=== PATIENT | female | born 1975 | race Caucasian/White ===

== ENCOUNTER 2020-05-28 18:58 | Inpatient (IN) | payer MEDICAID ==
[~2020-05-28] VITALS: Ht 170.2 cm; Wt 93.6 kg
--- NOTE | ~2020-05-28 | HEMODYNAMI ---
PATIENT:FREEMAN HENDERSON MEDICAL RECORD: [id number] : 73 LOCATION:[facility] D.2114 [facility]# [id number] ADMISSION DATE: 05/29/20 Generatedon:115:29 Patient name: FREEMAN HENDERSON Patient #: [id number] SSN: [id number] : 1975 Date of study: 05/29/2020 Page: Of Hemodynamic Procedure Report Patient Data Patient Demographics Procedure consent was obtained First Name: FREEMAN Gender: Female Last Name: SANTIAGO : 1975 Patient #: [id number] Age: 45 year(s) Race: SSN: [id number] Ethnicity: or Additional ID: [id number] Contact details [address]: [address] [place] [address] State: [place] City: [place] Zip code: [address] Past Medical History Allergies: No known allergies Admission Admission Data Admission Date: 05/29/2020 Admission Time: 0:26 Arrival Date: 05/29/2020 Arrival Time: 0:00 Admit Source: Other Insurance Payor: Medicaid Room #: D.2114 [facility] #: [id number] Height (in.): 67 BSA: 2.05 (m2) Height (cm.): 170.18 BMI: 32.32 (kg/m2) Weight (lbs.): 206.38 Weight (kg.): 93.61 Lab Results Lab Result Date: 05/29/2020 Lab Result Time: 0:00 Biochemistry Name Units Result Min Max BUN mg/dl 13 --(--*-)-- 7 18 CK-MB ng/ml 87.8 --(----)-* 0 3.6 Creatinine mg/dl 0.7 --(*---)-- 0.6 1.3 eGFR ml/min 90 --(*---)-- 90 120 NONAFRICAN Troponin l ng/ml 6.611 --(----)-* 0 0.06 CBC Name Units Result Min Max Hematocrit % 37.6 *-(----)-- 42 54 Hemoglobin g/dl 12.5 *-(----)-- 13.5 17.5 Procedure Procedure Types Cath Procedure Diagnostic Procedure [facility] w/Coronaries Sedation Charges Moderate Sedation 40-54 minutes PCI Procedure Coronary Stent Coronary Stent Initial Procedure Description Procedure Date Procedure Date: 05/29/2020 Procedure Start Time: 14:49 Procedure End Time: 15:13 Procedure Staff Name Function Emily Knapp RT Monitor Divya Jimenez RN Nurse Ronald Pollard MD Performing Physician Mellissa Jacobs RT Scrub Procedure Data Cath Procedure Fluoroscopy Diagnostic fluoroscopy Total fluoroscopy Time: 6.4 time: 6.4 min min Diagnostic fluoroscopy Total fluoroscopy dose: 866 dose: 866 mGy mGy Contrast Material Contrast Material Type Amount (ml) Isovue 300 111 Entry Location Entry Primary Successful Side Size Upsize Upsize Entry Closure Hayes ccessful Closure Location (Fr) 1 (Fr) 2 (Fr) Remarks Device Remarks Radial Right 6 Fr Mechanical artery Short Compression Estimated blood loss: 5 ml Diagnostic catheters Device Type Used For End Catheter Placement DIAGNOSTIC Jenkins 110cm 5 LV Angiography Fr catheter ([id number]) DIAGNOSTIC Jenkins 110cm 5 Right Coronary Fr catheter ([id number]) Angiography DIAGNOSTIC Jenkins 110cm 5 Left Coronary Fr catheter ([id number]) Angiography Procedure Complications No complications Procedure Medications Medication Administration Route Dosage Oxygen etCO2 Nasal cannula 2 l/min Lidocaine 2% added to field 20 Heparin Flush Bag added to field 2 bags (1000units/500ml NS) 0.9% NaCl I.V. 100 ml/hr Versed I.V. 2 mg Fentanyl I.V. 100 mcg Radial Cocktail I.A. 1 syringe (Verapamil 2mg/Nitro 400mcg/Heparin 1500units) Versed I.V. 1 mg Fentanyl I.V. 50 mcg Versed I.V. 1 mg Fentanyl I.V. 50 mcg Heparin Bolus I.V. 5000 units Versed I.V. 1 mg Fentanyl I.V. 50 mcg Versed I.V. 1 mg Hemodynamics Rest HGB: 12.5 (g/dl) Heart Rate: 56 (bpm) Pressure Samples Time Site Value (mmHg) Purpose Heart Use Rate(bpm) 14:49 LV 107/10,14 Snapshot 67 14:50 LV 102/10,13 Pullback 64 14:50 AO 95/59(75) Pullback 64 14:51 AO 91/46(59) Snapshot 64 Gradients Valve Time Site 1 Site 2 Mean SEP/DFP Peak To Heart Use (mmHg) (sec/min) Peak Rate (mmHg) (bpm) Aortic 14:50 LV AO 7 13 7 64 102/10,13 95/59(75) Calculations Valve P-P Mean Valve Index Valve Source Name Gradient Area Flow (cm2) Aortic 7 7 7 7 Snapshots Pre Cath Intra NCS Post Cath Vital Signs Time Heart Resp SPO2 etCO2 NIBP Rhythm Pain Sedation Rate (ipm) (%) (mmHg) (mmHg) Status Level (bpm) 14:32:35 56 21 98 27 106/59(76) NSR 0 (11) 10(A) , No pain 14:36:49 54 20 98 27.7 108/59(79) NSR 0 (11) 10(A) , No pain 14:41:09 57 18 97 33.7 120/58(76) NSR 0 (11) 10(A) , No pain 14:45:27 57 17 98 35.2 107/53(74) NSR 0 (11) 10(A) , No pain 14:49:45 69 18 99 30.8 91/57(74) NSR 0 (11) 10(A) , No pain 14:53:57 65 17 100 36 103/60(86) NSR 0 (11) 10(A) , No pain 14:58:15 63 12 100 37.5 105/54(66) NSR 0 (11) 9(A) , No pain 15:02:29 60 13 100 34.5 106/65(89) NSR 0 (11) 9(A) , No pain 15:06:45 59 14 100 36.7 108/65(81) NSR 0 (11) 10(A) , No pain 15:10:59 55 16 100 31.5 117/68(85) NSR 0 (11) 10(A) , No pain Medications Time Medication Route Dose Verified Delivered Reason Not es Effectiveness by by 14:31:46 Oxygen etCO2 2 l/min Ronald Stokes used for Nasal St Bari Jimenez grave digger cannula 14:31:53 Lidocaine 2% added 20ml Ronald Cardenas for local to vial [facility] anesthetic field MD ARCHIBALD 14:31:59 Heparin Flush added 2 bags Ronald Cardenas used for Bag to [facility] procedure (1000units/500ml field MD ARCHIBALD NS) 14:33:02 0.9% NaCl I.V. 100 Ronald Buffie Per physician ml/hr St Bari Jimenez RN, MD 14:47:52 Versed I.V. 2 mg Ronald Sequeiraie for sedation St Bari Jimenez RN, MD 14:47:57 Fentanyl I.V. 100 mcg Ronald Buffie for sedation St Bari Jimenez RN, MD 14:49:05 Radial Cocktail I.A. 1 Ronald Cardenas for (Verapamil syringe [facility] vasodilation 2mg/Nitro MD ARCHIBALD 400mcg/Hepari 14:50:23 Versed I.V. 1 mg Ronald Buffie for sedation St Bari Jimenez RN, MD 14:50:28 Fentanyl I.V. 50 mcg Ronald Buffie for sedation St Bari Jimenez RN, MD 14:54:02 Versed I.V. 1 mg Ronald Buffie for sedation St Bari Jimenez RN, MD 14:54:06 Fentanyl I.V. 50 mcg Ronald Buffie for sedation St Bari Jimenez RN, MD 14:56:01 Heparin Bolus I.V. 5000 Ronald Buffie for hernan ified units St Bari Jimenez RN anticoagulation with dr MD senior 14:58:41 Versed I.V. 1 mg Ronald Buffie for sedation St Bari Jimenez RN, MD 14:58:44 Fentanyl I.V. 50 mcg Ronald Buffie for sedation St Bari Jimenez RN, MD 15:04:35 Versed I.V. 1 mg Ronald Buffie for sedation St Bari Jimenez RN, MD Procedure Log Time Note 13:40:58 Informed consent obtained and on chart 13:41:14 Diagnostic Cath Status : Urgent 13:41:39 Arrival Date: 05/29/2020 12:00:00 AM 13:41:40 Admit Source: Other 13:41:43 Insurance Payor : Medicaid 13:42:43 Lab Result : eGFR NONAFRICAN 90 ml/min 13:42:43 Lab Result : Hemoglobin 12.5 g/dl 13:42:43 Lab Result : Hematocrit 37.6 % 13:42:43 Lab Result : Troponin l 6.611 ng/ml 13:42:43 Lab Result : BUN 13 mg/dl 13:42:43 Lab Result : Creatinine 0.7 mg/dl 13::43 Lab Result : CK-MB 87.8 ng/ml 13:43:09 Patient Height : 67 inches 13:43:11 Patient Weight : 206.38 lbs 13:43:18 ACC Patient presents with Unstable Angina CCS Anginal Class 2--Slight limitation of ordinary activity. 13:43:21 Procedure Status Urgent Heart Cath (IP). 13:43:23 Time tracking: Regular hours (M-F 7:00 - 5:00) 13:43:27 Plan of Care:Hemodynamics will remain stable., Cardiac rhythm will remain stable., Comfort level will be maintained., Respiratory function will remain adequate., Patient/ family verbilizes understanding of procedure., Procedure tolerated without complication., Recovers from procedure without complications.. 13:43:33 Lab results completed and on chart. 13:43:35 Stress Test: no; N/A ? 14:00:17 Risk of Mortality: 0.1 14:00:19 Risk of blood transfusion: 0.3 14:00:21 Risk of SHAVONNE: 0.4 14:00:47 Bleeding risk 0.3%. 14:00:55 Patient allergic to No known allergies 14:04:25 Divya Jimenez RN sent for patient. Start room use. 14:21:07 Patient received from PCU to CCL 1 Alert and oriented. Tansferred to table in Supine position. 14:31:18 Correct patient and procedure confirmed by team. 14:31:18 Warm blankets applied, and andrzej hugger turned on for patient comfort. 14:31:19 ECG and BP/O2 sat monitors applied to patient. 14:31:20 Vital chart was started 14:31:23 Rhythm: sinus rhythm 14:31:25 Full Disclosure recording started 14:31:30 H&P Date Dictated: 05/29/2020 Within 30 days and on chart.. 14:31:31 Pre-procedure instructions explained to patient. 14:31:32 Pre-op teaching completed and patient verbalized understanding. 14:31:34 Family unavailable. 14:31:36 Patient NPO since Midnight. 14:31:38 Is the patient allergic to Iodine/contrast media? No. 14:31:40 Is patient on blood thinner?Yes 14:31:45 ACC The patient was administered the following blood thiners within the last 24 hours: ACCPlavix 14:31:46 Oxygen 2 l/min etCO2 Nasal cannula was administered by Divya Jimenez RN; used for procedure; Verbal order read back and verified. 14:31:47 Patient diabetic? No. 14:31:52 Lidocaine 2% 20ml vial added to field was administered by Ronald Pollard MD; for local anesthetic; Verbal order read back and verified. 14:31:59 Heparin Flush Bag (1000units/500ml NS) 2 bags added to field was administered by Ronald Pollard MD; used for procedure; Verbal order read back and verified. 14:32:23 Previous problem with sedation/anesthesia? No ? 14:32:24 Snore? No 14:32:25 Sleep apnea? No 14:32:26 Deviated septum? No 14:32:27 Opens mouth fully? Yes 14:32:28 Sticks out tongue? Yes 14:32:32 Dentures? No ? 14:32:34 Airway obstruction? No ? 14:32:38 Pre procedure: right dorsailis pedis pulse 2+ Normal; easily identifiable; not easily obliterated 14:32:40 Modified Homar's test Ulnar < 7 seconds 14:32:41 Patient pain scale 0/10 ?. 14:32:48 IV patent on arrival in left hand with 0.9% NaCl at [facility]. 14:33:00 Right Radial & Right Groin area was prepped with chlora-prep and draped in sterile fashion 14:33:01 Alarms reviewed by R. N. 14:33:02 Sharps counted by scrub and verified by R.N. 14:33:02 0.9% NaCl 100 ml/hr I.V. was administered by Divya Jimenez RN; Per physician; Verbal order read back and verified. 14:33:11 Patient not . Patient has had hysterectomy. 14:42:33 Baseline sample Acquired. 14:42:37 Zero performed for pressure channel P1 14:46:30 Final Timeout: patient, procedure, and site verified with staff and physician. All members of the team are in agreement. 14:46:33 Right Radial site verified by team. 14:46:37 Fire Safety Assessment: A--An alcohol-based skin anteseptic being used preoperatively., C--Open oxygen or nitrous oxide is being used., D--An ESU, laser, or fiber-optic light is being used. 14:46:41 Physical assessment completed. ASA score P 2 - A patient with mild systemic disease as per Ronald Pollard MD. 14:46:43 1) 90+ Normal kidney functon but urine findings or structural abnormalities or genetic trait point to kidney disease. 14:46:46 Maximum allowable contrast dose (3.7 X eGFR X 0.75)250 ml. 14:46:50 Sedation plan: IV Moderate Sedation Medication:Versed, Fentanyl 14:46:54 Use device set Radial Dx or PCI 14:46:55 Medline Cath Pack ([id number]) opened to sterile field. 14:46:55 ACIST Syringe (38188) opened to sterile field. 14:46:56 ACIST Hand Control (20195) opened to sterile field. 14:46:56 Bag Decanter (2002S) opened to sterile field. 14:46:57 MBrace Wrist Support ([id number]) opened to sterile field. 14:46:57 ACIST Manifold (39319) opened to sterile field. 14:47:00 EMERALD Guide Wire (040-281) opened to sterile field. 14:47:03 SHEATH 6FR RAIN (7506914) opened to sterile field. 14:47:10 Local anesthetic to right radial artery with Lidocaine 2% by Ronald Pollard MD.INITIAL ACCESS ONLY 14:47:35 A 6 Fr Short sheath was inserted into the Right Radial artery 14:47:52 Versed 2 mg I.V. was administered by Divya Jimenez RN; for sedation; Verbal order read back and verified. 14:47:57 Fentanyl 100 mcg I.V. was administered by Divya Jimenez RN; for sedation; Verbal order read back and verified. 14:48:36 A DIAGNOSTIC Jenkins 110cm 5 Fr catheter (652439) was advanced over the wire and used for LV Angiography. 14:49:05 Radial Cocktail (Verapamil 2mg/Nitro 400mcg/Heparin 1500units) 1 syringe I.A. was administered by Ronald Pollard MD; for vasodilation; Verbal order read back and verified. 14:49:40 Procedure started. 14:49:54 LV gram done using CHUNG 14:50:05 EF : 55 % 14:50:07 LV hemodynamics recorded. 14:50:09 Injector settings: Ml/sec: 5, Volume: 15, 14:50:17 A DIAGNOSTIC Jenkins 110cm 5 Fr catheter (399120) was advanced over the wire and used for Right Coronary Angiography. 14:50:23 Versed 1 mg I.V. was administered by Divya Jimenez RN; for sedation; Verbal order read back and verified. 14:50:28 Fentanyl 50 mcg I.V. was administered by Divya Jimenez RN; for sedation; Verbal order read back and verified. 14:50:38 A DIAGNOSTIC Jenkins 110cm 5 Fr catheter ([id number]) was advanced over the wire and used for Left Coronary Angiography. 14:52:20 Catheter removed. 14:52:25 Proceeding to intervention. 14:52:38 Use device set AVERILL PCI 14:52:48 INFLATOR Merit BasixCompak ([id number]) opened to sterile field. 14:53:01 GUIDE 6FR HS I catheter (LA6HSI) opened to sterile field. 14:53:19 PCI Cath status Urgent 14:53:26 ACC Pre-intervention JOSE Flow is 0. 14:53:46 Pre PCI Site: [place] mRCA has 100% stenosis. 14:54:02 Versed 1 mg I.V. was administered by Divya Jimenez RN; for sedation; Verbal order read back and verified. 14:54:06 Fentanyl 50 mcg I.V. was administered by Divya Jimenez RN; for sedation; Verbal order read back and verified. 14:54:13 Asahi Minamo 300cm wire opened to sterile field. 14:54:25 6 Fr HS I guide catheter was inserted over the wire 14:56:01 Heparin Bolus 5000 units I.V. was administered by Divya Jimenez RN; for anticoagulation; verified with dr senior Verbal order read back and verified. 14:56:44 1ST MINAMO WIRE DAMAGED 14:56:59 Asahi Minamo 300cm wire opened to sterile field. 14:57:29 NEW MINAMO WIRE wire advanced. 14:58:19 CHOICE PT Extra Support J 300cm guide wire ([id number]) opened to sterile field. 14:58:41 Versed 1 mg I.V. was administered by Divya Jimenez RN; for sedation; Verbal order read back and verified. 14:58:44 Fentanyl 50 mcg I.V. was administered by Divya Jimenez RN; for sedation; Verbal order read back and verified. 14:59:23 Wire advanced across lesion. 15:01:30 Inflate balloon Inflation number: 1 A EUPHORA 3.0 x 15 Balloon ([id number]) was prepped and advanced across the Mid RCA 100, then inflated to 10 SYED for 0:16 (min:sec) . 15:02:08 Inflation number: 2 The EUPHORA 3.0 x 15 Balloon ([id number]) was reinflated across the Mid RCA , to 10 SYED for 0:19 (min:sec) . 15:02:38 Balloon removed over the wire. 15:04:35 Versed 1 mg I.V. was administered by Divya Jimenez RN; for sedation; Verbal order read back and verified. 15:05:26 Place stent Inflation Number: 3 A WILFRID RX 3.5 x 18 stent ([id number]) was prepped and advanced across the Mid RCA . The stent was deployed at 14 SYED for 0:20 (min:sec) . 15:05:49 Stent catheter was removed intact over wire. 15:05:52 ACC Post-intervention JOSE Flow is 3. 15:05:56 Wire removed. 15:05:58 Guide catheter removed. 15:06:36 Sheath removed intact; hemostasis achieved with Mechanical Compression to the Right Radial artery. 15:06:38 Procedure ended.(Physican Out) 15:06:51 Fluoroscopy time 06.40 minutes. 15:07:08 Fluoroscopy dose: 866 mGy 15:07:08 Flurop Dose total: 866 15:07:14 Dose Area Product 84.2 mGy/cm. 15:07:17 Contrast amount:Isovue 300 111ml. 15:07:19 Maximum allowable dose exceeded? No. 15:07:20 Sharps counted by scrub and verified by R.N. 15:07:51 ZEPHYR REGULAR TR BAND (103479) opened to sterile field. 15:08:53 Procedure type changed to Cath procedure, Diagnostic procedure, LHC, LHC w/Coronaries, Sedation Charges, Moderate Sedation 40-54 minutes, PCI procedure, Coronary Stent, Coronary Stent Initial 15:10:06 Kramer band inflated with 12cc of air. 15:10:08 Insertion/operative site no bleeding no hematoma. 15:10:22 Post right radial artery:stable, clean and dry 15:10:25 Post Procedure Pulses reassessed and unchanged 15:10:28 Post-procedure physical assessment completed. ASA score P 2 - A patient with mild systemic disease as per Ronald Pollard MD. 15:10:31 Post procedure rhythm: unchanged. 15:10:33 Estimated blood loss: 5 ml 15:10:34 Post procedure instruction explained to patient.Patient verbalizes understanding. 15:10:35 Patient needs reinforcement of post procedure teaching. 15:10:36 Procedure and supply charges have been captured, reviewed, submitted and are correct. 15:10:40 Procedure Complication : No complications 15:10:45 Operative report dictated upon procedure completion. 15:10:46 See physician's report for complete and final results. 15:10:49 Report given to PCU. 15:12:39 ACT drawn and resulted at out of range high seconds. (normal therapeutic range 180-240 seconds). 15:12:59 Patient transfered to PCU with Bed. 15:13:01 Full Disclosure recording stopped 15:13:01 Procedure ended. 15:13:55 Vital chart was stopped Intervention Summary Intervention Notes Time ActionType Lesion and Equipment Used Action# Pressure Duration Attributes 15:01:30 Inflate Mid RCA EUPHORA 3.0 x 1 10 00:16 balloon 15 Balloon ([id number]) 15:02:08 Reinflate Mid RCA EUPHORA 3.0 x 2 10 00:20 balloon 15 Balloon ([id number]) 15:05:26 Place stent Mid RCA WILFRID RX 3.5 x 3 14 00:20 18 stent ([id number]) Device Usage Item Name Manufacture Quantity Catalog Number Hospital Part Current M inimal Lot# / Charge Number Stock Stock Serial# Code ACIST Syringe Acist 1 50092 744734 129186 718935 2 0 (48667) Medical Systems Inc Medline Cath Medline 1 [id number] 843217 60222 193279 5 Pack ([id number]) Bag Decanter Microtek 1 367396 07095 346902 5 () Medical Inc. ACIST Hand Acist 1 54132 177898 271658 607368 5 Control Medical (37561) Systems Inc ACIST Manifold Acist 1 67415 688446 979337 930750 5 (15382) Medical Systems LocalOn MBrace Wrist Advanced 1 140-0250-00 745887 17354 800626 5 Support Vascular ([id number]) Dynamics EMERALD Guide Cardinal 1 502-455 681271 926868 921371 5 Wire (502-455) Health SHEATH 6FR Cardinal 1 9592572 621690 0514139 867800 5 RAIN (5867216) Health DIAGNOSTIC Terumo 1 40-5013 622658 572510 549112 5 Jenkins 110cm 5 Fr catheter (244407) INFLATOR Merit Merit 1 [id number] 278466 164686 236173 1 5 Machinima Medical (UB7115) GUIDE 6FR HS I Medtronic 1 LA6HSI 293549 66530 492520 1 catheter (LA6HSI) Asahi Glynno Asaal Intecc 2 [id number] 317289 8888363 960789 0 300cm wire CHOICE PT Dunbar 1 [id number] 079361 350353 237860 5 Extra Support Scientific J 300cm guide wire ([id number]) EUPHORA 3.0 x Medtronic 1 [id number] 604343 755381 033218 5 [id number] 15 Balloon ([id number]) WILFRID RX 3.5 x Medtronic 1 [id number] 897875 6482020 654858 5 [id number] 18 stent ([id number]) ZEPHYR REGULAR Cardinal 1 475819 827576 7717174 996551 5 [facility] [place] WaVE (038899) Signature Audit [place] Stage Time Signature Unsigned Intra-Procedure 05/29/2020 Divya Pollard MD; 3:13:51 PM RN; Emily Jimenez RN; Counts RT(R); Emily Fernandes RT(R) 05/29/2020 Bari ARCHIBALD 3:27:18 PM Intra-Procedure 05/29/2020 Emily 3:27:51 PM Counts RT(R) Intra-Procedure 05/29/2020 Divya Jimenez RN 3:28:19 PM Intra-Procedure 05/29/2020 Ronald Fernandes 3:29:26 [place] [address]
[2020-05-28 19:58] LABS: BASOPHILS 0.1 % (0-2); EOSINOPHILS 0.5 % (0-7); HEMATOCRIT 39.2 % (36.0-48.0); IMMATURE GRANULOCYTES 0.2 % (0-5); LYMPHOCYTE ABS# 1.29 10x3/uL (1.18-3.74); LYMPHOCYTES 11.7 % (15-50); MCHC 33.2 g/dL (31.0-37.0); MCV 84.5 fL (80.0-100.0); MEAN PLATELET VOLUME 9.2 fL (7.4-10.4); MONOCYTES 4.7 % (2-11); NEUTROPHIL ABS# 9.15 10x3/uL (1.56-6.13); NEUTROPHILS 82.8 % (40-80); PLATELET COUNT 253 10x3/uL (130-400); RBC 4.64 10x6/uL (4.00-5.40); RDW 14.6 % (11.5-14.5)
[2020-05-28 20:06] LABS: APTT 31.1 SECONDS (22.8-39.4); CALC OSMOLALITY 275 mosm/kg (275-300); CALCIUM 8.7 mg/dL (8.5-10.1); CARBON DIOXIDE 25.4 mmol/L (21.0-32.0); CHLORIDE - SERUM 101 mmol/L (98-107); CREATININE - SERUM 0.8 mg/dL (0.6-1.3); GLUCOSE 107 mg/dL (74-106); INR 1.07 (0.85-1.17); POTASSIUM - SERUM 3.5 mmol/L (3.5-5.1); PROTIME 12.8 SECONDS (11.6-15.0); SODIUM 137 mmol/L (136-145); UREA NITROGEN 17 mg/dL (7-18); eGFR NON AFRICAN AMERICAN 82 mL/min (90-120)
[2020-05-28 20:28] LABS: ALKALINE PHOSPHATASE 87 U/L (30-120); ALT (SGPT) 20 U/L (10-68); BILIRUBIN - TOTAL 0.15 mg/dL (0.2-1.3); CKMB 1.7 U/L (0.0-3.6); CREATINE KINASE 108 UL (21-215); PROTEIN - SERUM 7.7 g/dL (6.4-8.2)
[2020-05-28 20:55] VITALS: BP 118/72
[2020-05-28 23:59] LABS: CKMB 14.7 U/L (0.0-3.6); CREATINE KINASE 175 UL (21-215)
[2020-05-29] VITALS (7 sets, daily range): BP systolic 109–146; BP diastolic 53–96; Ht 170.2 cm; Wt 93.6 kg
[2020-05-29 00:03] LABS: TROPONIN-I 0.859 ng/mL (0.000-0.060)
--- NOTE | 2020-05-29 01:15 | NUR ---
PT FROM ER VIA W/C, PT AMBULATED TO BED, PT RESP EVEN AND UNLABORED, NO DISTRESS NOTED, CL IN REACH, SR UP X 2.
[2020-05-29 05:21] LABS: BASOPHILS 0.1 % (0-2); EOSINOPHILS 0.3 % (0-7); HEMATOCRIT 37.6 % (36.0-48.0); HEMOGLOBIN 12.5 g/dL (12-16); LYMPHOCYTE ABS# 1.69 10x3/uL (1.18-3.74); LYMPHOCYTES 21.6 % (15-50); MCH 27.9 pg (26.0-34.0); MCHC 33.2 g/dL (31.0-37.0); MCV 83.9 fL (80.0-100.0); MEAN PLATELET VOLUME 9.7 fL (7.4-10.4); MONOCYTES 6.8 % (2-11); NEUTROPHIL ABS# 5.59 10x3/uL (1.56-6.13); NEUTROPHILS 71.2 % (40-80); PLATELET COUNT 250 10x3/uL (130-400); RBC 4.48 10x6/uL (4.00-5.40); RDW 14.6 % (11.5-14.5)
[2020-05-29 05:37] LABS: INR 1.11 (0.85-1.17); PROTIME 13.3 SECONDS (11.6-15.0)
[2020-05-29 05:39] LABS: WBC 7.8 10x3/uL (4.8-10.8)
[2020-05-29 06:02] LABS: CALC OSMOLALITY 274 mosm/kg (275-300); CALCIUM 8.4 mg/dL (8.5-10.1); CARBON DIOXIDE 22.8 mmol/L (21.0-32.0); CHLORIDE - SERUM 104 mmol/L (98-107); CHOL - HDL RATIO 4.9 ratio (2.3-4.1); CHOLESTEROL, TOTAL 185 mg/dL (0-200); CKMB 87.8 U/L (0.0-3.6); CREATININE - SERUM 0.7 mg/dL (0.6-1.3); GLUCOSE 121 mg/dL (74-106); HDL CHOLESTEROL 38 mg/dL (32-96); LDL CHOLESTEROL 125 mg/dL (0-100); LDL-HDL RATIO 3.3 ratio (1.5-3.5); MAGNESIUM - SERUM 2.1 mg/dL (1.8-2.4); PHOSPHOROUS 3.1 mg/dL (2.5-4.9); SODIUM 137 mmol/L (136-145); TRIGLYCERIDE 112 mg/dL (30-200); UREA NITROGEN 13 mg/dL (7-18); eGFR NON AFRICAN AMERICAN > 90 mL/min (90-120)
[2020-05-29 06:03] LABS: CREATINE KINASE 528 UL (21-215); TROPONIN-I 6.611 ng/mL (0.000-0.060)
[2020-05-29 09:05] LABS: ALT (SGPT) 25 U/L (10-68)
[2020-05-29 13:00] LABS: CKMB 121.3 U/L (0.0-3.6)
[2020-05-29 13:04] LABS: CREATINE KINASE 750 UL (21-215)
--- NOTE | 2020-05-29 16:27 | NUR ---
PATIENT GIVEN CARDIAC REHAB INFORMATION PATIENT WAS STILL REAL SLEEPY FROM HER PROCEDURE.. WILL FOLLOW UP WITH PATIENT IN 2 WEEKS.
--- NOTE | 2020-05-29 17:58 | NUR ---
2 CC REMOVED OFF TR BAND AT 1758. NO BLEEDING AT SITE. CLEAN DRY AND INTACT. NO HEMATOMA. PULSE PRESENT.
--- NOTE | 2020-05-29 18:41 | NUR ---
REMOVED 2 CC OF AIR FROM TR BAND. NO BLEEDING. NO HEMATOMA. CLEAN DRY AND INTACT.
[2020-05-29 18:53] LABS: CKMB 102.9 U/L (0.0-3.6); CREATINE KINASE 756 UL (21-215)
[2020-05-29 19:07] LABS: TROPONIN-I 29.171 ng/mL (0.000-0.060)
--- NOTE | 2020-05-30 01:10 | NUR ---
I have reviewed this patient and I concur with the Shift Assessment completed by the Licensed Practical Nurse today this shift.
[2020-05-30 04:00] VITALS: BP 139/82
[2020-05-30 04:15] VITALS: BP 139/85
[2020-05-30 05:04] LABS: BASOPHILS 0.2 % (0-2); EOSINOPHILS 1.5 % (0-7); HEMATOCRIT 36.7 % (36.0-48.0); HEMOGLOBIN 11.8 g/dL (12-16); IMMATURE GRANULOCYTES 0.2 % (0-5); LYMPHOCYTE ABS# 2.06 10x3/uL (1.18-3.74); LYMPHOCYTES 34.8 % (15-50); MCH 27.6 pg (26.0-34.0); MCHC 32.2 g/dL (31.0-37.0); MONOCYTES 7.9 % (2-11); NEUTROPHIL ABS# 3.28 10x3/uL (1.56-6.13); NEUTROPHILS 55.4 % (40-80); PLATELET COUNT 256 10x3/uL (130-400); RBC 4.27 10x6/uL (4.00-5.40); WBC 5.9 10x3/uL (4.8-10.8)
[2020-05-30 05:38] LABS: CALC OSMOLALITY 273 mosm/kg (275-300); CALCIUM 8.1 mg/dL (8.5-10.1); CARBON DIOXIDE 25.4 mmol/L (21.0-32.0); CHLORIDE - SERUM 106 mmol/L (98-107); CREATININE - SERUM 0.8 mg/dL (0.6-1.3); GLUCOSE 97 mg/dL (74-106); MAGNESIUM - SERUM 2.2 mg/dL (1.8-2.4); MCV 85.9 fL (80.0-100.0); PHOSPHOROUS 2.8 mg/dL (2.5-4.9); POTASSIUM - SERUM 3.7 mmol/L (3.5-5.1); SODIUM 137 mmol/L (136-145); UREA NITROGEN 13 mg/dL (7-18); eGFR NON AFRICAN AMERICAN 82 mL/min (90-120)
[2020-05-30 07:58] VITALS: BP 102/43
[2020-05-30] MEDS ORDERED: PROTONIX40 MG PO (09:49)
[2020-05-30] MEDS ORDERED: TOPROL XL25 MG PO (09:49)
[2020-05-30] MEDS ORDERED: PLAVIX75 MG PO (09:49)
[2020-05-30] MEDS ORDERED: LIPITOR20 MG PO (09:49)
[2020-05-30] MEDS ORDERED: ASPIRIN EC81 MG PO (10:45)
--- NOTE | 2020-05-30 11:00 | NUR ---
IV AND TELEMETRY DCD. DC PLANS GIVEN. UNDERSTANDING VOICED. WAITING FOR RIDE HOME.
--- NOTE | 2020-05-30 11:47 | NUR ---
ESCORTED TO CAR BY W/C.
--- NOTE | 2020-06-02 16:00 | CN ---
PATIENT NAME:FREEMAN HENDERSON MEDICAL RECORD: [id number] : 73 LOCATION:D. D.2114 ADMIT DATE: 05/29/20 ACCOUNT: [id number] CONSULTING PHYSICIAN: KASI RIDDLE MD REFERRING PHYSICIAN: HILLARY EASTMAN MD DATE OF CONSULTATION: 05/29/2020 HISTORY OF PRESENT ILLNESS: A 45-year-old female with really no significant past medical history, does have a history of questionable SLE in the past, on no medications. No control. Had onset of classic angina with sweatiness, nausea, chest pressure, tightness, found to have elevated troponin with NSTEMI. We are asked to see her concerning her cardiovascular status. PAST MEDICAL HISTORY: Includes a history of questionable SLE, on no medications. No usp disease sequelae. ALLERGIES: None known. MEDICATIONS: None chronically. SOCIAL HISTORY: Works at the [employer]. Smokes about a pack a day. Social drinker. No regular exercise. REVIEW OF SYSTEMS: The patient reports easy bruising but reports no swollen glands. The patient reports no fever, no night sweats, no significant weight gain, no significant weight loss. No significant exercise tolerance. The patient reports no dry eyes, no irritation, no vision change. Patient reports no difficulty hearing and no ear pain. Patient reports no frequent nose bleeds or nose and sinus problems. Patient reports on arm pain on exertion. No shortness of breath while lying down. No history of heart murmur. Patient reports no cough, no wheezing or coughing up blood. Patient reports no abdominal pain, no vomiting. Normal appetite. No diarrhea and not vomiting blood. No nausea and no constipation. Patient reports no incontinence. No difficulty urinating. No hematuria. No increased frequency. Patient reports no muscle aches. No weakness, no arthralgias, no back pain. No swelling of the extremities. Patient reports no abnormal mole, no jaundice, no rashes. Reports no loss of consciousness. No weakness and no numbness. No seizures, dizziness, or headaches. The patient reports no depression, no sleep disturbance, feeling safe in a relationship and no alcohol abuse. Patient reports on fatigue. Reports no runny nose or sinus pressure. No itching, no hives, and no frequent sneezing. PHYSICAL EXAMINATION: GENERAL: Well-developed, well-nourished, in no acute distress, appears stated age. VITALS SIGNS: Blood pressure 114/58, pulse 62 and regular. HEENT: Normocephalic, atraumatic. NECK: No JVD or bruit. HEART: Regular. S4 gallop is noted. LUNGS: Good air excursion. ABDOMEN: Soft, nontender. EXTREMITIES: Pulses 2+. There is no edema. DIAGNOSTIC DATA: EKG shows nonspecific ST-T changes. CONSULT REPORT [id number] FREEMAN HENDERSON IMPRESSION: Non-ST elevation myocardial infarction. PLAN: For angiography, intervention based on the above. TRANSINT:[id number] Voice Confirmation ID: [id number] DOCUMENT ID: [id number] KASI RIDDLE MD at 1600 CC: [id number] DICTATION DATE: 05/29/20845 STEAMFITTER SUPERVISOR: 05/29/20927 DIS IN 05/30/20 [id number] [place] [address]
--- NOTE | 2020-06-02 16:00 | OP ---
PATIENT NAME: FREEMAN HENDERSON MEDICAL RECORD: [id number] LOCATION:D.M2 D.2114 ADMISSION DATE:05/29/20 SURGEON: KASI RIDDLE MD DATE OF OPERATION: 05/29/2020 PROCEDURE: Left heart catheterization, selective coronary angiography, right radial approach. CATHETERS: Radial sheath and [place] catheter. The procedure was well tolerated. The patient returned to mejía. Sheath removed. TR band was placed. FINDINGS: Left ventriculography in 30-degree CHUNG view: Normal wall motion and normal systolic function. CORONARY ANATOMY: Left main: Left main is free of disease. LAD: Has about a 70% discrete stenosis, probably not flow restrictive. Circumflex: Free of disease. Right coronary artery: Totally occluded, obviously the infarct related artery. PLAN: Intervention of the right momentarily. DESCRIPTION: Using the indwelling sheath, hockey stick guiding catheter allowed provided guide catheter support followed by a 300 cm [place] wire placed down totally occluded vessel distal portion of the right coronary. Predeployment was a 3.0 x 15 mm [place] balloon. Stent deployed was a 3.5 x 18 mm Onxy drug-eluting stent up to 14 atmospheres for 45 seconds. Final angiography shows occlusion of the totally occluded 100% stenosis of right coronary to no significant residual with a nice step up and step down distally. JOSE flow was improved from 0 to 3. Sheath closed with TR band. Plavix was previously loaded. TRANSINT:[id number] Voice Confirmation ID: [id number] DOCUMENT ID: [id number] KASI RIDDLE MD at 1600 CC: [id number] DICTATION DATE: 05/29/20 1521 DOT COMPLIANCE COORDINATOR: 05/29/20 1827 DIS IN 05/30/20 [facility] [address] [id number]
== END 2020-05-30 11:48 | disposition home or self-care (01) | DRG 247 ==
LOC: D.ER 18:58 → D.M2 05-29 00:26
PROVIDERS: Family Medicine; Internal Medicine Interventional Cardiology; ADMIT Emergency Medicine; ATTEND Emergency Medicine
PROC: B2151ZZ Fluoroscopy of Left Heart using Low Osmolar Contrast (ICD-10-PCS; 2020-05-29)
PROC: 027034Z Dilation of Coronary Artery, One Artery with Drug-eluting Intraluminal Device, Percutaneous Approach (ICD-10-PCS; principal; 2020-05-29 14:04)
PROC: 4A023N7 Measurement of Cardiac Sampling and Pressure, Left Heart, Percutaneous Approach (ICD-10-PCS; 2020-05-29 14:04)
DX: I21.4 Non-ST elevation (NSTEMI) myocardial infarction (principal); M32.9 Systemic lupus erythematosus, unspecified; R07.9 Chest pain, unspecified; F17.200 Nicotine dependence, unspecified, uncomplicated